=== PATIENT | female | born 1950 | race Caucasian/White ===

== ENCOUNTER 2018-08-06 09:42 | Emergency (ER) | payer MEDICARE ==
--- NOTE | 2018-08-06 11:16 | ED ---
General Adult HPI - General Chief complaint: Skin/Abscess/Foreign Body Stated complaint: bumps all over Time Seen by Provider: 08/06/18 10:33 Source: patient, RN notes reviewed Mode of arrival: ambulatory Limitations: no limitations - History of Present Illness Initial comments: 67-year-old female presented to the emergency room today with a chief complaint of rash. Patient does admit that over the last few weeks she's had red spots to the flexor areas. She states underneath her breast and thighs. She states now has one to the left elbow area. She also admits that she's noticed a small little bumps to the right hand she's had a few around to the left. Patient states that it's very itchy. She states that there is some redness to the right side of her face. She admits to itchiness. States she has not seen any bumps in those areas. Denies any other complaints or symptoms. Patient denies any recent fever, chills, shortness of breath, chest pain, back pain, abdominal pain, nausea or vomiting, numbness or tingling, headaches or visual changes, or any other complaints. - Related Data Home Medications Medication Instructions Recorded Confirmed Aspirin EC [Ecotrin Low Dose] 81 mg PO DAILY 07/02/18 08/06/18 Atorvastatin [Lipitor] 20 mg PO DAILY 07/02/18 08/06/18 Benzonatate [Tessalon Perles] 100 mg PO TID PRN 07/02/18 08/06/18 Calcium Carbonate [Calcium] 600 mg PO DAILY 07/02/18 08/06/18 Cholecalciferol [Vitamin D3] 1,000 unit PO DAILY 07/02/18 08/06/18 Losartan [Cozaar] 25 mg PO DAILY 07/02/18 08/06/18 Magnesium Oxide [Mag-Ox] 250 mg PO DAILY 07/02/18 08/06/18 Montelukast [Singulair] 10 mg PO DAILY 07/02/18 08/06/18 [place]-3 Fatty Acids/Fish Oil [Fish 1 cap PO DAILY 07/02/18 08/06/18 Oil 1,000 mg Softgel] metFORMIN HCL [Glucophage] 500 mg PO BID 07/02/18 08/06/18 Nystatin 100,000 Unit/gm Powd 1 applic TOPICAL TID PRN 08/06/18 08/06/18 [Mycostatin Powder] Previous Rx's Medication Instructions Recorded predniSONE 20 mg PO DIRECTED #11 tab 08/06/18 Allergies Allergy/AdvReac Type Severity Reaction Status Date / Time No Known Allergies Allergy Verified 08/06/18 10:46 Review of Systems ROS Statement: Those systems with pertinent positive or pertinent negative responses have been documented in the HPI. ROS Other: All systems not noted in ROS Statement are negative. Past Medical History Past Medical History: Asthma, COPD, Diabetes Mellitus, Hyperlipidemia Additional Past Medical History / Comment(s): takes blood pressure pill to help her kidneys History of Any Multi-Drug Resistant Organisms: None Reported Past Surgical History: Cholecystectomy, Hysterectomy, Tonsillectomy Additional Past Surgical History / Comment(s): left shoulder total replacement, neck sx, cataracts, mastoid x3, Past Psychological History: No Psychological Hx Reported Smoking Status: Never smoker Past Alcohol Use History: None Reported Past Drug Use History: None Reported General Exam - General Exam Comments Initial Comments: General: The patient is awake and alert, in no distress, and does not appear acutely ill. Eye: Pupils are equal, round and reactive to light. Extra-ocular movements are intact. No nystagmus. There is normal conjunctiva bilaterally. No signs of icterus. Ears, nose, mouth and throat: There are moist mucous membranes and no oral lesions. Neck: The neck is supple, there is no tenderness or JVD. Cardiovascular: There is a regular rate and rhythm. No murmur, rub or gallop is appreciated. Respiratory: Lungs are clear to auscultation, respirations are non-labored, breath sounds are equal. No wheezes, stridor, rales, or rhonchi. Musculoskeletal: Normal ROM, no tenderness. Sensation intact. Strength 5/5. Pulses equal bilaterally 2+. Neurological: A&O x 3. CN II-XII intact, There are no obvious motor or sensory deficits. Coordination appears grossly intact. Speech is normal. Skin: Patient does have vesicle-like lesions to the right hand at the base of the web spacing on the volar aspect. Also some lesions seen grouped Together. The webspace between the second and third digit of the left hand. She does have redness to the flexor area of the left elbow there are no grouped vesicle lesions. Also redness to the right side of face with again no lesions present. Areas blanching. Psychiatric: Cooperative, appropriate mood & affect, normal judgment. Limitations: no limitations Course Vital Signs 08/06/18 09:45 Temperature 97.9 F Pulse Rate 78 Respiratory 20 Rate Blood Pressure 153/78 O2 Sat by Pulse 100 Oximetry Medical Decision Making - Medical Decision Making Was discussed with patient about hepatic lesions versus scabies. Patient will be treated with steroids as well as follow-up physician also runner worker. Disposition Clinical Impression: Rash Disposition: HOME SELF-CARE Condition: Good Instructions: Acute Rash (ED) Additional Instructions: Please follow up with the family physician also runner worker as discussed is coming week. Please return here to the emergency room for any symptoms increase or worsen or for any other concerns. Prescriptions: predniSONE 20 mg PO DIRECTED #11 tab Is patient prescribed a controlled substance at d/c from ED?: No Referrals: lOya Isaac MD [Primary Care Provider] - 1-2 days Time of Disposition: 11:14
[2018-08-06 11:40] VITALS: BP 157/79; PULSE 70; RESP 18; TEMP 98.5
== END 2018-08-06 11:44 | disposition home or self-care (01) ==
LOC: EC 09:42
DX: R21 Rash and other nonspecific skin eruption (principal); J44.9 Chronic obstructive pulmonary disease, unspecified; E11.9 Type 2 diabetes mellitus without complications; E78.5 Hyperlipidemia, unspecified; Z79.82 Long term (current) use of aspirin; Z79.84 Long term (current) use of oral hypoglycemic drugs; Z79.899 Other long term (current) drug therapy; Z96.612 Presence of left artificial shoulder joint
CPT/HCPCS: 99283

== ENCOUNTER → 2022-04-21 | Outpatient (CLI) | payer MEDICARE ==
[2022-04-21 10:46] VITALS: BP 171/78; PULSE 70; RESP 18; TEMP 98.8
--- NOTE | 2022-04-21 11:54 | XR ---
EXAM TYPE: LUMBAR SPINE X RAY SERIES COMPARISON: NONE HISTORY: Pain TECHNIQUE: 3 views are submitted. FINDINGS: Alignment is anatomic. The pedicles are intact. The transverse processes are intact. There is post surgical change involving the lower lumbar spine with grade 1 anterolisthesis L4 on L5. Degenerative disc disease L2-3 and L3-L4. Sclerotic changes of the L3 segment could be associated with a large amara tebral body hemangioma. Hypertrophic and degenerative changes seen at the thoracolumbar junction. Vas cular calcifications noted. Surgical clips right upper quadrant. Retained fecal debris throughout the visualized colon correlate for constipation. Dilated gastric bubble. IMPRESSION: 1. Postsurgical changes with grade 1 anterolisthesis L4 on L5. 2. Multilevel degenerative disc disease with slight expansion of the L3 vertebral segment. Vertebral body hemangioma in the differential diagnosis. Other etiologies not excluded. Recommend CT scan. 3. Gastric bubble is distended.
--- NOTE | 2022-04-21 14:54 | P.PAINPG ---
PQRS Measure Charge Sheet Comment: HISTORY OF PRESENT ILLNESS: 71 yr old female as a referral from Dr. Shawn Alberto ([facility]) presents today with severe and chronic LBP secondary to DDD and facet arthropathy for evaluation. Pt states her LBP is 6/10 in intensity, intermittent, tight/ pressure in sensation accompanied with BLE cramping. Pain is provoked with PT in January 2022 for 3 weeks which provoked pain, walking/standing or periods of 10 min or more. Pain is palliated with heat, medications (Tylenol OTC, Aleve OTC), home based stretching, repositioning and rest. PMH: Asthma, COPD, Diabetes Mellitus, Hyperlipidemia PSH: Cholecystectomy, Hysterectomy, Tonsillectomy, Lumbar surgery(2019), L shoulder Total Replacement (2018), Neck Surgery, Cataract Resection, Mastoidectomy x 3. SH: Negative x 3. FH: Non contributory All: NKDA Meds: See list REVIEW OF ORGAN SYSTEMS: CONSTITUTIONAL: No fevers or chills. No recent weight loss. NEUROLOGICAL: + numbness and tingling along the distal extremities. No seizure disorders or headaches. MUSCULOSKELETAL: + pain PSYCHIATRIC: Denies current depression or suicidal thoughts. Physical Examinations : Constitutional : Cooperative , not in acute distress . Neurologic : Cranial nerve II to XII intact. No focal ne urological deficits. Psychiatric : alert & oriented x 3. Matching mood & appropriate affect. Judgment & insight intact. Musculoskeletal : Cervical Spine Motor strength in the deltoid and biceps: Normal right side. Normal Left side Motor strength biceps and the wrist extensors: Normal right side . Normal left side Motor strength in the triceps muscle: Normal right side. Normal left side Deep tendon reflexes: Normal at the biceps. Normal at Brachioradialis. Normal at triceps Vertebral body tenderness to deep palpation over BL L4-L5, L5-S1 Cervical facet loading test: positive bilaterally Spurling test: positive bilaterally Neck distraction test: positive bilaterally Molina sign: positive bilaterally Lumbar spine Motor strength lower extremities ,thigh and legs 5/5 Right side , 5/5 Left side Deep tendon reflexes : Normal Knee Jerk. Normal Ankle Jerk Vertebral body tenderness over Lumbar facet Loading Test: positive Right / positive Left Range of motion of the lumbar spine Flexion 30 degrees, extension 10 degrees Straight Leg Raise test: Left/ Right positive at degree Vipul test: positive right / positive left. Severe tenderness over the Sacroiliac joint on the Right / Left sides Gaenslen test: positive bilaterally Seated flexion test: positive bilaterally. Sacral spine : Severe tenderness over the Sacroiliac joint: right side / left side Range of motion: Flexion of the lumbar spine <60 degrees Range of motion: Extension of the lumbar spine <20 degrees Gaenslen's Test positive Darinel's Test positive Vipul test: positive right side / left side Thigh Thrust Test Sacral Thrust Test Imaging: None on file Assessment/ Plan : Recommendation of xray lumbar spine M51.36. May return to our clinic for further evaluation and possible additional testing and referrals as needed. All questions answered. I have spent greater than 30 minutes on patient care today. Dr Chairez was available by phone for the evaluation of this patient. The time was used to review the medical records including relevant urine studies and Prescription history (MAPs), review of the available imaging, evaluation and examination of the patient, coordination of care with the medical staff and if applicable referring physicians, as well as creation of the medical record PQRS Narrative: Smoking Status Never smoker Home Medications: Ambulatory Orders Aspirin EC [Ecotrin Low Dose] 81 mg PO DAILY 07/02/18 Atorvastatin [Lipitor] 20 mg PO DAILY 07/02/18 Benzonatate [Tessalon Perles] 100 mg PO TID PRN 07/02/18 Calcium Carbonate [Calcium] 600 mg PO DAILY 07/02/18 Cholecalciferol [Vitamin D3] 1,000 unit PO DAILY 07/02/18 Losartan [Cozaar] 25 mg PO DAILY 07/02/18 Magnesium Oxide [Mag-Ox] 250 mg PO DAILY 07/02/18 Montelukast [Singulair] 10 mg PO DAILY 07/02/18 [place]-3 Fatty Acids/Fish Oil [Fish Oil 1,000 mg Softgel] 1 cap PO DAILY 07/02/18 metFORMIN HCL [Glucophage] 500 mg PO BID 07/02/18 Nystatin 100,000 Unit/gm Powd [Mycostatin Powder] 1 applic TOPICAL TID 10 Days gm 08/06/18 Nystatin 100,000 Unit/gm Powd [Mycostatin Powder] 1 applic TOPICAL TID PRN 08/06/18 predniSONE [Deltasone] 20 mg PO DIRECTED #11 tab 08/06/18 Controlled Substance Measures - Controlled Substance Measures Is patient prescribed a controlled substance at discharge?: No
== END ==
LOC: PNWHC3 09:25
PROVIDERS: ATTEND Specialist
DX: M51.36 Other intervertebral disc degeneration, lumbar region (principal); M47.816 Spondylosis without myelopathy or radiculopathy, lumbar region; J44.9 Chronic obstructive pulmonary disease, unspecified; E11.9 Type 2 diabetes mellitus without complications; E78.5 Hyperlipidemia, unspecified
CPT/HCPCS: 72100; G0463; 99211

== ENCOUNTER → 2022-06-06 | Outpatient (CLI) | payer MEDICARE ==
[2022-06-06 11:21] VITALS: BP 171/80; PULSE 67; RESP 18; TEMP 98.1
--- NOTE | 2022-06-06 14:21 | P.PAINPG ---
PQRS Measure Charge Sheet Comment: A 71 yr old female with a history of severe and chronic low back pain secondary to lumbar degenerative disc diseases and lumbar spondylosis with facet arthropathy presents today for x ray lumbar spine results. Pain level is currently at 8/10 in intensity, constant, achy/ sore in character w shooting towards the BLES. Pain is provoked by standing, lifting, twisting and bending. Pain is alleviated with medications (Aleve), heat, repositioning, physical therapy for 6 weeks in January and February 2022, laying supine and rest. Patient is currently on Aleve OTC Patient denies any side effects of the medication(s), denies excessive drowsiness or sleepiness, denies suicidal ideation and reports that the current pain medication is helping to control the pain and improve activities of daily living. Patient denies any motor or sensory deficits. Patient denies any fever or night sweats, denies any change in the bowel movements or urination. Physical Examination: -Constitutional: Cooperative. Not in acute distress . - Neurologic: Cranial nerve II to XII intact. No focal neurological deficits. - Psychatric: Alert & oriented x 3. Matching mood & appropriate affect. Judgment and insight intact. - Musculoskeletal: Cervical spine: Muscle bulk/ tone/ strength in the bilateral upper extremities normal Vertebral body tenderness to palpation over Spurling test positive Distraction test positive Facet loading test positive Thoracic spine Muscle bulk / tone/ strength in the bilateral paraspinal muscles normal Vertebral body tender to palpation over Facet loading test positive Lumbar spine: Motor bulk/ tone/ strength lower extremities , thigh and legs : 5/5 Deep tendon reflexes : Normal Knee Jerk. Normal Ankle Jerk . Vertebral body tenderness to palpation over L4, L5 Lumbar Facet Loading Test positive Straight Leg Raise: positive at 30 degrees right side/ left side Gaenslen's Test positive Sacral spine : Severe tenderness over the Sacroiliac joint: right side / left side Range of motion: Flexion of the lumbar spine <60 degrees Range of motion: Extension of the lumbar spine <20 degrees Gaenslen's Test positive Darinel's Test positive Vipul test: positive right side / left side Thigh Thrust Test Sacral Thrust Test Imaging: Lumbar spine x ray results reviewed Assessment and plan: Chronic low back pain secondary to lumbar degenerative disc disease , lumbar spondylosis with facet arthropathy without myelopathy Recommendation of MRI without contrast of the lumbar spine re: M51.36. Pt may return to our clinic within 2 weeks for a re evaluation. Pt stated she is claustrophobic w MRI tunnels and needs medication for it. E scribed Valium 5mg 1-2 tabs 30 min prior to testing NR. Use, side effects and adverse reactions discussed and pt verbalized understanding. Risks, benefits of procedure discussed and pt verbalized understanding. Denies anticoagulant use or medical history of diabetes. All patient questions answered MAPS reviewed and it was appropriate. I have spent less than 30 minutes on patient care today. Dr Chairez was available by phone for the evaluation of this patient. The time was used to review the medical records including relevant urine studies and Prescription history (MAPs), review of the available imaging, evaluation and examination of the patient, coordination of care with the medical staff and if applicable referring physicians, as well as creation of the medical record - Pain Location Bilateral Buttock Non-Pharmacological Interventions: Heat, Inactivity, Position/Reposition, Sitting Pharmacological Interventions: Medication, PRN Medication PQRS Narrative: Smoking Status Never smoker Hx Alcohol Use (MH) No Home Medications: Ambulatory Orders Aspirin EC [Ecotrin Low Dose] 81 mg PO DAILY 07/02/18 Atorvastatin [Lipitor] 20 mg PO DAILY 07/02/18 Benzonatate [Tessalon Perles] 100 mg PO TID PRN 07/02/18 Calcium Carbonate [Calcium] 600 mg PO DAILY 07/02/18 Cholecalciferol [Vitamin D3] 1,000 unit PO DAILY 07/02/18 Losartan [Cozaar] 25 mg PO DAILY 07/02/18 Magnesium Oxide [Mag-Ox] 250 mg PO DAILY 07/02/18 Montelukast [Singulair] 10 mg PO DAILY 07/02/18 [place]-3 Fatty Acids/Fish Oil [Fish Oil 1,000 mg Softgel] 1 cap PO DAILY 07/02/18 metFORMIN HCL [Glucophage] 500 mg PO BID 07/02/18 Nystatin 100,000 Unit/gm Powd [Mycostatin Powder] 1 applic TOPICAL TID 10 Days gm 08/06/18 Nystatin 100,000 Unit/gm Powd [Mycostatin Powder] 1 applic TOPICAL TID PRN 08/06/18 predniSONE [Deltasone] 20 mg PO DIRECTED #11 tab 08/06/18 Cyclobenzaprine [Flexeril] 10 mg PO HS 30 Days #30 tab 04/21/22 Diclofenac Sodium Gel [Voltaren Gel] 100 gm TOPICAL QID 30 Days #100 g 04/21/22 diazePAM [Valium] 5 mg PO Q24H 1 Days #2 tab 06/06/22 Controlled Substance Measures - Controlled Substance Measures Is patient prescribed a controlled substance at discharge?: No
== END ==
LOC: PNWHC3 09:56
PROVIDERS: ATTEND Specialist
DX: M51.36 Other intervertebral disc degeneration, lumbar region (principal); M47.816 Spondylosis without myelopathy or radiculopathy, lumbar region; G89.29 Other chronic pain
CPT/HCPCS: 99211

== ENCOUNTER → 2022-06-25 | Outpatient (CLI) | payer MEDICARE ==
--- NOTE | 2022-06-25 16:04 | MR ---
EXAMINATION TYPE: MR lumbar spine wo con DATE OF EXAM: 06/25/2022 COMPARISON: None history of spinal fusion in 2019 HISTORY: LBP, difficulty walking, BLE radiculpathy, hx surgery 2019. TECHNIQUE: Multiecho multiplanar images of lumbar spine were obtained without contrast. FINDINGS: There are postsurgical changes anterior metallic fusion at the L4, L5 and S1 levels. The lumbar vertebral segments are normal in height and alignment. There is mild degenerative disc disease at the L2-3 and L3-4 levels where there is mild disc space na rrowing and decreased signal intensity. At the L3-4 level, there is mild circumferential disc bulge. There are no lumbar disc herniations Secondary to disc bulge and mild thickening of ligamentum flavum, there is a mild to moderate spinal stenosis at the L3-4 level The conus medullaris and cauda equina appear normal. The neuroforamina are patent. The paraspinal soft tissues are unremarkable. IMPRESSION: 1. Laminectomy and metallic fusion from L4 4 through S1. 2. Mild to moderate spinal stenosis at the L3-4 level described above. 3. Mild degenerative disc disease at the L2-3 and L3-4 level. No lumbar disc herniation. 4. Lumbar vertebral segments are normal in height and alignment.
== END | disposition home or self-care (01) ==
LOC: RADMRIMAIN 13:52
PROVIDERS: ATTEND Specialist
DX: M51.36 Other intervertebral disc degeneration, lumbar region (principal); M43.27 Fusion of spine, lumbosacral region
CPT/HCPCS: 72148

== ENCOUNTER → 2022-06-29 | Outpatient (CLI) | payer MEDICARE ==
[2022-06-29 09:39] VITALS: BP 195/89; PULSE 73; RESP 18; TEMP 98.2
--- NOTE | 2022-06-29 09:53 | P.PN ---
Subjective Progress Note Date: 06/29/22 This is a follow-up visit for 71 yr old female with a history of severe and chronic low back pain secondary to lumbar degenerative disc diseases and lumbar spondylosis with facet arthropathy presents today for discussion about the results of the MRI which was done recently. Pain level is currently at 8/10 in intensity, constant, achy/ sore in character w shooting towards the BLES. Pain is provoked by standing, lifting, twisting and bending. Pain is alleviated with medications (Aleve), heat, repositioning, physical therapy for 6 weeks in January and February 2022, laying supine and rest. Patient is currently on Aleve OTC Patient denies any side effects of the medication(s), denies excessive drowsines s or sleepiness, denies suicidal ideation and reports that the current pain medication is helping to control the pain and improve activities of daily living. Patient denies any motor or sensory deficits. Patient denies any fever or night sweats, denies any change in the bowel movements or urination. Physical Examinations : -Constitutiona : Cooperative , not in acute distress . -HEENT : nech : supple , no Lymphadenopathy , normal thyroid size . : eyes : no ptosis , no icterus, no photophobia . - neurologic : Cranial nerve II to XII intact , no focal neurological deffecit . -psychatric : alert , oriented X 3 , appropriate affect , intact judgment and insight . -Lymphatic : no Lymphadenopathy . - musculoskeltal : Lumber spine moter stegnth lower extremities ,thigh and legs 5/5 Right side , 5/5 Left side deep tendon reflexes : normal Knee Jerk , normal ankle Jerk lumber facet Loading Test =positive Right , positive Left Range of motion of the lumbar spine Flexion 30 degrees, extension 10 degrees strait leg raising test = positive at 45 degree Fabere test= positive Right , and positive LT . tenderness over the Sacroiliac joint on the Right , and Left sides Gaenslen test= positive right ,and positive left . Seated flexion test= positive right ,and positive Left . 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 Denies anticoagulant use or medical history of diabetes. All patient questions answered MAPS reviewed and it was appropriate. Objective - Vital Signs Vital signs: Vital Signs Temp 98.2 F 06/29/22 09:33 Pulse 73 06/29/22 09:33 Resp 18 06/29/22 09:33 BP 195/89 06/29/22 09:33 Pulse Ox 97 06/29/22 09:33 FiO2 Intake & Output 06/28/22 06/29/22 06/29/22 18:59 06:59 18:59 Weight 95.254 kg
== END | disposition home or self-care (01) ==
LOC: PNWHC3 09:06
PROVIDERS: ATTEND Specialist
DX: M51.36 Other intervertebral disc degeneration, lumbar region (principal)
CPT/HCPCS: 99211

== ENCOUNTER 2022-06-30 06:35 | Day surgery (SDC) | payer MEDICARE ==
[2022-06-30 07:23] VITALS: TEMP 96.9
[2022-06-30] MEDS ORDERED: LIDOCAINE 1% (10MG/ML) FOR IV START INTRADERMA ONE (07:39)
[2022-06-30] MEDS ORDERED: LACTATED RINGERS 1,000 ML IV ONE (07:39)
[2022-06-30] MEDS ORDERED: IOPAMIDOL M200 10 ML VIAL ONE (07:43)
[2022-06-30] MEDS ORDERED: methylPREDNISolone ACETATE 80 MG/ML 1 ML VIAL ONE ×2 (07:43)
[2022-06-30] MEDS ORDERED: MIDAZOLAM 2 MG/2 ML VIAL ONE (07:43)
[2022-06-30] MEDS ORDERED: fentaNYL (PF) 50 MCG/ML 2 ML AMP ONE (07:43)
[2022-06-30 07:47] LABS: Glucose,Whole Blood 129 mg/dL (70-110)
--- NOTE | 2022-06-30 08:04 | P.PCN ---
Date of Procedure: 06/30/22 Procedure(s) Performed: PREOPERATIVE DIAGNOSIS: 1-Lumbar radiculopathy . 2-failed back surgery syndrome lumbar area. 3-lumbar spondylosis with lumbar facet arthropathy POSTOPERATIVE DIAGNOSIS: Same as preoperative diagnoses. PROCEDURE 1. Transforaminal epidural steroid injection under fluoroscopic guidance at Bilateral L3-4 level. (Fluoroscopy images stored on file in the radiology Department ) 2. Lumbar epidurogram . ANESTHESIA: Local with 1% lidocaine 3 ml , moderate sedation with intravenous Versed 2 mg and fentanyle 100 micrograms. Sedation start time :07:45 . Tashia tion. stop time : 08:00 . EBL: Minimal PROCEDURE INDICATION: The patient with low back pain and radiculopathy symptoms unresponsive to conservative treatment. PROCEDURE DESCRIPTION / TECHNIQUE: The patient was seen and identified in the preoperative area. Risks, benefits, complications, and alternatives were discussed with the patient. The patient agreed to proceed with the procedure and signed the consent. IV was started, and vital signs were stable. Patient was taken to the OR and time out was completed. The patient was placed in the prone position on procedure table and a pillow was placed under the abdomen to reduce lumbar lordosis. The lumbosacral area was prepped and draped in the usual sterile fashion. Critical pause was taken. Vital signs were closely monitored during the procedure. Conscious sedation was used during the procedure to decrease patient s anxiety. Using oblique fluoroscopy, the chin of the `Kristiny dog at Right L3-4 level was identified, and the skin and deeper tissues just below was localized with 1% lidocaine. Subsequently, a 22-gauge 5-inch spinal needle was advanced under a tunneled view fluoroscopic guidance just underneath the chin of the `Kristiny dog at the right L3-4 Under lateral fluoroscopy, the needle was then advanced to the posterior border of the interforaminal space. After negative aspiration of CSF and blood and with no paresthesias, 1 mL Isovue 200 contrast dye was injected excellent epidurogram and outlining of the nerve root Subsequently, 3 mL of block solution containing 30 mg Depo-Medrol and 2 mL of 0.9% normal saline PF was injected. Needle was removed and the same procedure was repeated at the left L3-4 level . At the end of the procedure, skin was cleansed, and bandages were applied. COMPLICATIONS:none DISPOSITION / PLANS: The patient was placed in a supine position and transferred to the recovery area in a stable condition for observation. There was no evidence of lower extremity motor or sensory deficit after the procedure. Patient was discharged from the recovery room after meeting discharge criteria. Home discharge instructions were given to the patient by the staff. The patient was reexamined prior to discharge.
[2022-06-30] MEDS ORDERED: IV FLUID CONTINUATION 900 ML IV ONE (08:06)
[2022-06-30 08:09] VITALS: RESP 16
[2022-06-30 08:25] VITALS: BP 149/76; PULSE 64
--- NOTE | 2022-06-30 12:27 | FL ---
Fluoroscopy HISTORY: Pain 10 seconds fluoroscopy time supplied to the referring clinician. 2 intraoperative C-arm images docum ent the procedure. See dictated report from anesthesia.
== END 2022-06-30 08:52 | disposition home or self-care (01) ==
LOC: ORPAIN 06:35
PROVIDERS: ATTEND Anesthesiology
DX: M47.26 Other spondylosis with radiculopathy, lumbar region (principal); M96.1 Postlaminectomy syndrome, not elsewhere classified
CPT/HCPCS: 64483; J2250; J1040; J3010; Q9966; 99152

== ENCOUNTER → 2022-07-21 | Outpatient (CLI) | payer MEDICARE ==
[2022-07-21 10:39] VITALS: BP 177/84; PULSE 68; RESP 18; TEMP 98.3
--- NOTE | 2022-07-21 13:39 | P.PAINPG ---
PQRS Measure Charge Sheet Comment: A 71 yr old female with a history of severe and chronic low back pain secondary to lumbar degenerative disc diseases and lumbar spondylosis with facet arthropathy without myelopathy presents today for evaluation s/p BL TFESI L3-L4. Pt states she experienced 50-60% pain relief x 3 wks s/p procedure. Pain level is currently at 7/10 in intensity, constant, localized in mid lumbar spine, dull/ achy in character w shooting towards the BL thighs. Pain is provoked by bending/ twisting. Pain is alleviated with use of walking cane for ambulatory assistance, meds, injections, heat, ice, sitting w LEs elevated, repositioning and rest. Interventional pain procedures completed include BL TFESI L3-4 x1. Patient is currently on Voltaren gel Patient denies any side effects of the medication(s), denies excessive drowsiness or sleepiness, denies suicidal ideation and reports that the current pain medication is helping to control the pain and improve activities of daily living. Patient denies any motor or sensory deficits. Patient denies any fever or night sweats, denies any change in the bowel movements or urination. Physical Examination: -Constitutional: Cooperative. Not in acute distress . - Neurologic: Cranial nerve II to XII intact. No focal neurological deficits. - Psychatric: Alert & oriented x 3. Matching mood & appropriate affect. Judgment and insight intact. - Musculoskeletal: Cervical spine: Muscle bulk/ tone/ strength in the bilateral upper extremities normal Vertebral body tenderness to palpation over Spurling test positive Distraction test positive Facet loading test positive Thoracic spine Muscle bulk / tone/ strength in the bilateral paraspinal muscles normal Vertebral body tender to palpation over Facet loading test positive Lumbar spine: Motor bulk/ tone/ strength lower extremities , thigh and legs : 5/5 Deep tendon reflexes : Normal Knee Jerk. Normal Ankle Jerk . Vertebral body tenderness to palpation over L3, L4 Lumbar Facet Loading Test positive Straight Leg Raise: positive at 30 degrees right side/ left side Gaenslen's Test positive Sacral spine : Severe tenderness over the Sacroiliac joint: right side / left side Range of motion: Flexion of the lumbar spine <60 degrees Range of motion: Extension of the lumbar spine <20 degrees Gaenslen's Test positive Darinel's Test positive Vipul test: positive right side / left side Thigh Thrust Test Sacral Thrust Test Assessment and plan: Chronic low back pain secondary to lumbar degenerative disc disease , lumbar spondylosis with facet arthropathy without myelopathy Recommendation of BL TFESI L3-L4 #2. May need a series of injections, up to 3 within a 6 mo period, for optimal pain relief. Risks, benefits of proc edure discussed and pt verbalized understanding. Admits to anticoagulant use or medical history of diabetes. Protocol for discontinuation/ continuation of medications hillary procedure discussed. All patient questions answered MAPS reviewed and it was appropriate. Prescription refill for Voltaren gel 90 say supply to [facility] per pt request. I have spent less than 30 minutes on patient care today. Dr Chairez was available by phone for the evaluation of this patient. The time was used to review the medical records including relevant urine studies and Prescription his tory (MAPs), review of the available imaging, evaluation and examination of the patient, coordination of care with the medical staff and if applicable referring physicians, as well as creation of the medical record - Pain Location Bilateral Lower Back Non-Pharmacological Interventions: Heat, Physical Therapy, Position/Reposition, Sitting Pharmacological Interventions: Epidural, PRN Medication, Topical Medication PQRS Narrative: Smoking Status Never smoker Hx Alcohol Use (MH) No Home Medications: Ambulatory Orders Aspirin EC [Ecotrin Low Dose] 81 mg PO DAILY 07/02/18 Calcium Carbonate [Calcium] 600 mg PO DAILY 07/02/18 Cholecalciferol [Vitamin D3] 1,000 unit PO DAILY 07/02/18 Losartan [Cozaar] 50 mg PO DAILY 07/02/18 Magnesium Oxide [Mag-Ox] 400 mg PO DAILY 07/02/18 Montelukast [Singulair] 10 mg PO DAILY 07/02/18 [place]-3 Fatty Acids/Fish Oil [Fish Oil 1,000 mg Softgel] 1 cap PO DAILY 07/02/18 metFORMIN HCL [Glucophage] 750 mg PO BID 07/02/18 Nystatin 100,000 Unit/gm Powd [Mycostatin Powder] 1 applic TOPICAL TID 10 Days gm 08/06/18 Rosuvastatin [Crestor] 20 mg PO DAILY 06/30/22 Diclofenac Sodium Gel [Voltaren Gel] 100 gm TOPICAL BID PRN 90 Days #300 gm 07/21/22 Controlled Substance Measures - Controlled Substance Measures Is patient prescribed a controlled substance at discharge?: No
== END ==
LOC: PNWHC3 09:18
PROVIDERS: ATTEND Specialist
DX: M47.816 Spondylosis without myelopathy or radiculopathy, lumbar region (principal); M51.36 Other intervertebral disc degeneration, lumbar region; E11.9 Type 2 diabetes mellitus without complications; Z79.01 Long term (current) use of anticoagulants; G89.29 Other chronic pain
CPT/HCPCS: 99211

== ENCOUNTER → 2022-09-16 | Outpatient (CLI) | payer MEDICARE ==
--- NOTE | 2022-09-16 10:46 | XR ---
EXAM TYPE: LUMBAR SPINE X RAY SERIES COMPARISON: NONE HISTORY: Postop TECHNIQUE: 3 views are submitted. FINDINGS: The gastric bubble is distended. Surgical clips in the right upper quadrant. Diffuse osteopenia with multilevel vertebral changes. There is degenerative disc disease thoracolumbar junction and there are vascular calcifications. There is postsurgical change extending from levels L3-S1. Near anatomic alignment with minimal joey listhesis of L3 on L4 and L4 on L5. Transpedicular screws and laminectomy changes are noted. Suspect foraminal encroachment L4-5 and L5-S1 bilaterally IMPRESSION: 1. Postoperative change in near-anatomic alignment. 2. Distention of the gastric bubble.
== END | disposition home or self-care (01) ==
LOC: RADXRMAIN 10:19
PROVIDERS: ATTEND Neurological Surgery
DX: K63.89 Other specified diseases of intestine (principal); Z98.890 Other specified postprocedural states
CPT/HCPCS: 72100

== ENCOUNTER 2024-02-18 08:23 | Emergency (ER) | payer MEDICARE ==
[2024-02-18] MEDS: SODIUM CHLORIDE 0.9% 1,000 ML IV STA (09:13)
[2024-02-18 09:15] VITALS: TEMP 98.7
[2024-02-18] MEDS: ONDANSETRON 4 MG/2 ML VIAL IVP STA (09:15)
[2024-02-18] MEDS: FAMOTIDINE 20 MG/2 ML VIAL IV STA (09:17)
--- NOTE | 2024-02-18 10:02 | ED ---
Nausea/Vomiting/Diarrhea HPI - General Chief complaint: Nausea/Vomiting/Diarrhea Stated complaint: NVD Time Seen by Provider: 02/18/24 08:37 Source: patient, RN notes reviewed Mode of arrival: ambulatory Limitations: no limitations - History of Present Illness Initial comments: This is a 73-year-old female who presents to the emergency department for dariel sea, vomiting, diarrhea, and abdominal pain. She started with diarrhea and abdominal pain yesterday, which progressed to nausea and vomiting this morning. Abdominal pain is described as diffuse and somewhat of a burning sensation. She did start Celebrex a couple of weeks ago for chronic pain, but otherwise denies any new medications. Unsure if the diarrhea would be characterized as watery or somewhat formed. Denies any blood in her vomit or stool. Denies any fever/chills or sick contacts. - Related Data Home Medications Medication Instructions Recorded Confirmed Aspirin EC [Ecotrin Low Dose] 81 mg PO DAILY 07/02/18 02/18/24 Montelukast [Singulair] 10 mg PO DAILY 07/02/18 02/18/24 [place]-3 Fatty Acids/Fish Oil [Fish 1 cap PO DAILY 07/02/18 02/18/24 Oil 1,000 mg Softgel] Rosuvastatin [Crestor] 20 mg PO DAILY 06/30/22 02/18/24 Acetaminophen Tab [Tylenol Tab] 500 mg PO Q6H PRN 02/18/24 02/18/24 Calcium Carbonate/Vitamin D3 2 tab PO DAILY 02/18/24 02/18/24 [Calcium 600 mg-Vit D3 10 mcg (400 Unit)] Celecoxib [CeleBREX] 200 mg PO DAILY 02/18/24 02/18/24 Cholecalciferol [Vitamin D3 (125 125 mcg PO DAILY 02/18/24 02/18/24 Mcg = 5000 Iu)] Cinnamon Bark [Cinnamon] 500 mg PO DAILY 02/18/24 02/18/24 Cyanocobalamin (Vitamin B-12) 1,000 mcg PO DAILY 02/18/24 02/18/24 [Vitamin B-12] Fluticasone Propion/Salmeterol 1 puff PO RT-BID 02/18/24 02/18/24 [Fluticasone-Salmeterol 250-50] Losartan [Cozaar] 50 mg PO DAILY 02/18/24 02/18/24 Magnesium Oxide [Mag-Ox] 400 mg PO DAILY 02/18/24 02/18/24 Mv-Min/Folic/K1/Lycopen/Lutein 1 tab PO DAILY 02/18/24 02/18/24 [Centrum Adults 50 Plus Minis] Potassium Gluconate 99 mg PO DAILY 02/18/24 02/18/24 amLODIPine [Norvasc] 5 mg PO DAILY 02/18/24 02/18/24 metFORMIN HCL [metFORMIN HCL ER] 750 mg PO BID 02/18/24 02/18/24 Previous Rx's Medication Instructions Recorded Loperamide [Imodium] 2 mg PO QID PRN #30 capsule 02/18/24 Ondansetron Odt [Zofran Odt] 4 mg PO Q8HR PRN #30 tab 02/18/24 Allergies Allergy/AdvReac Type Severity Reaction Status Date / Time No Known Allergies Allergy Verified 02/18/24 11:46 Review of Systems ROS Statement: Those systems with pertinent positive or pertinent negative responses have been documented in the HPI. ROS Other: All systems not noted in ROS Statement are negative. Past Medical History Past Medical History: Asthma, COPD, Diabetes Mellitus, Hyperlipidemia Additional Past Medical History / Comment(s): takes blood pressure pill to help her kidneys History of Any Multi-Drug Resistant Organisms: None Reported Past Surgical History: Cholecystectomy, Hysterectomy, Tonsillectomy Additional Past Surgical History / Comment(s): left shoulder total replacement, neck sx, cataracts, mastoid x3, Past Anesthesia/Blood Transfusion Reactions: No Reported Reaction Past Psychological History: No Psychological Hx Reported Smoking Status: Never smoker Past Alcohol Use History: None Reported Past Drug Use History: None Reported General Exam Limitations: no limitations General appearance: alert, in no apparent distress Head exam: Present: atraumatic, normocephalic, normal inspection Respiratory exam: Present: normal lung sounds bilaterally. Absent: respiratory distress, wheezes, rales, rhonchi, stridor Cardiovascular Exam: Present: regular rate, normal rhythm, normal heart sounds. Absent: systolic murmur, diastolic murmur, rubs, gallop, clicks GI/Abdominal exam: Present: soft, tenderness (diffuse), normal bowel sounds. Absent: distended, guarding, rebound, rigid Neurological exam: Present: alert, oriented X3, CN II-XII intact Psychiatric exam: Present: normal affect, normal mood Skin exam: Present: warm, dry, intact, normal color. Absent: rash Course Vital Signs 02/18/24 08:32 Temperature 98.7 F Pulse Rate 93 Respiratory 18 Rate Blood Pressure 143/79 O2 Sat by Pulse 95 Oximetry Medical Decision Making - Medical Decision Making This is a 73 year old female who presents to the emergency department for abdominal pain, nausea, vomiting, and diarrhea. Was pt. sent in by a medical professional or institution? @ -No Did you speak to anyone other than the patient for history? @ -No Did you review nursing and triage notes? @ -Yes, and I agree, it is accurate with regards to the patient's symptoms. Were old charts reviewed? @ -No Differential Diagnosis? @ -Differential Abdominal Pain Women: Appendicitis, Cholecystitis, diverticulosis, ischemic bowel, pancreatitis, hepatitis, UTI, gastroenteritis, AAA, incarcerated hernia, bowel obstruction, constipation, inflammatory bowel, hepatitis, peptic ulcer disease, splenic infarction, perforated viscus, vulvitis, ovarian torsion, PID, kidney stone, pl acenta abruption, this is not meant to be an all-inclusive list EKG interpreted by me (3pts min.)? @ -EKG interpreted by me demonstrating the following: Sinus rhythm. Ventri cular rate 90 bpm, W[place] interval 149 ms, QRS duration 83 ms, QTc 416 ms. X-rays interpreted by me (1pt min.)? @ -Not obtained CT interpreted by me (1pt min.)? @ -CT scan of the abdomen and pelvis obtained. My interpretation identifies no evidence of bowel wall thickening or free air. U/S interpreted by me (1pt. min.)? @ -Not obtained What testing was considered but not performed? (CT, X-rays, U/S, labs)? Why? @ -None What meds were considered but not given? Why? @ -None Did you discuss the management of the patient with other professionals? @ -No Did you reconcile home meds? @ -No Was smoking cessation discussed for >3mins.? @ -No Was critical care preformed (if so, how long)? @ -No Were there social determinants of health that impacted care today? How? (Homelessness, low income, unemployed, alcoholism, drug addiction, transportation, low edu. Level, literacy, decrease access to med. care, fpc, rehab)? @ -No Was there de-escalation of care discussed even if they declined? (Discuss DNR or withdrawal of care, Hospice)? @ -No What co-morbidities impacted this encounter? (DM, HTN, Smoking, COPD, CAD, Cancer, CVA, Hep., AIDS, mental health diagnosis, sleep apnea, morbid obesity)? @ -DM, HLD Was patient admitted / discharged? @ -Discharged. Lab work demonstrates leukocytosis and signs of dehydration. COVID, influenza, and RSV testing were negative. Urinalysis negative for signs of infection. Medication for the patient's nausea and pain were administered in the emergency department. Symptoms likely viral in nature. Prescription for Zofran and Imodium provided with dosing instructions reviewed. She is advised to slowly advance her diet as tolerated and remain well-hydrated. Also advised follow-up with her primary care provider. Undiagnosed new problem with uncertain prognosis? @ -None Drug Therapy requiring intensive monitoring for toxicity (Heparin, Nitro, Insulin, Cardizem)? @ -None Were any procedures done? @ -None Diagnosis/symptom? @ -Gastroenteritis Acute, or Chronic, or Acute on Chronic? @ -Acute Uncomplicated (without systemic symptoms) or Complicated (systemic symptoms)? @ -Uncomplicated Side effects of treatment? @ -None Exacerbation, Progression, or Severe Exacerbation] @ -Not applicable Poses a threat to life or bodily function? @ -No Return precautions reviewed in depth, the patient is instructed to return to the emergency department with any new, worsening, or concerning symptoms. Patient verbalized understanding. This case was discussed in detail with the attending ED physician, Dr. Cardona. Presentation, findings, and treatment plan discussed in detail as well. - Lab Data Result diagrams: 02/18/24 09:11 02/18/24 09:11 Lab Results 02/18/24 02/18/24 02/18/24 Range/Units 09:11 09:11 09:11 WBC 17.1 H (3.8-10.6) k/uL RBC 5.11 (3.80-5.40) m/uL Hgb 14.9 (11.4-16.0) gm/dL Hct 45.9 (34.0-46.0) % MCV 89.9 (80.0-100.0) fL MCH 29.2 (25.0-35.0) pg MCHC 32.5 (31.0-37.0) g/dL RDW 12.9 (11.5-15.5) % Plt Count 254 (150-450) k/uL MPV 8.3 Neutrophils % 95 % Lymphocytes % 2 % Monocytes % 2 % Eosinophils % 1 % Basophils % 0 % Neutrophils # 16.2 H (1.3-7.7) k/uL Lymphocytes # 0.3 L (1.0-4.8) k/uL Monocytes # 0.3 (0-1.0) k/uL Eosinophils # 0.2 (0-0.7) k/uL Basophils # 0.0 (0-0.2) k/uL Sodium 136 L (137-145) mmol/L Potassium 4.7 (3.5-5.1) mmol/L Chloride 105 (98-107) mmol/L Carbon Dioxide 21 L (22-30) mmol/L Anion Gap 10 mmol/L BUN 21 H (7-17) mg/dL Creatinine 0.63 (0.52-1.04) mg/dL Est GFR (CKD-EPI)AfAm >90 (>60 ml/min/1.73 sqM) Est GFR (CKD-EPI)NonAf 88 (>60 ml/min/1.73 sqM) Glucose 184 H (74-99) mg/dL Plasma Lactic Acid Cesar 1.9 (0.7-2.0) mmol/L Calcium 9.1 (8.4-10.2) mg/dL Phosphorus 2.7 (2.5-4.5) mg/dL Magnesium 1.7 (1.6-2.3) mg/dL Total Bilirubin 0.8 (0.2-1.3) mg/dL AST 30 (14-36) U/L ALT 29 (4-34) U/L Alkaline Phosphatase 62 (38-126) U/L Troponin I (0.000-0.034) ng/mL Total Protein 6.9 (6.3-8.2) g/dL Albumin 4.1 (3.5-5.0) g/dL Amylase 57 (30-110) U/L Lipase 72 (23-300) U/L Urine Color Urine Appearance (Clear) Urine pH (5.0-8.0) Ur Specific [place] (1.001-1.035) Urine Protein (Negative) Urine Glucose (UA) (Negative) Urine Ketones (Negative) Urine Blood (Negative) Urine Nitrite (Negative) Urine Bilirubin (Negative) Urine Urobilinogen (<2.0) mg/dL Ur Leukocyte Esterase (Negative) Influenza Type A (PCR) (Not Detectd) Influenza Type B (PCR) (Not Detectd) RSV (PCR) (Not Detectd) SARS-CoV-2 (PCR) (Not Detectd) 02/18/24 02/18/24 02/18/24 Range/Units 09:11 09:11 10:31 WBC (3.8-10.6) k/uL RBC (3.80-5.40) m/uL Hgb (11.4-16.0) gm/dL Hct (34.0-46.0) % MCV (80.0-100.0) fL MCH (25.0-35.0) pg MCHC (31.0-37.0) g/dL RDW (11.5-15.5) % Plt Count (150-450) k/uL MPV Neutrophils % % Lymphocytes % % Monocytes % % Eosinophils % % Basophils % % Neutrophils # (1.3-7.7) k/uL Lymphocytes # (1.0-4.8) k/uL Monocytes # (0-1.0) k/uL Eosinophils # (0-0.7) k/uL Basophils # (0-0.2) k/uL Sodium (137-145) mmol/L Potassium (3.5-5.1) mmol/L Chloride (98-107) mmol/L Carbon Dioxide (22-30) mmol/L Anion Gap mmol/L BUN (7-17) mg/dL Creatinine (0.52-1.04) mg/dL Est GFR (CKD-EPI)AfAm (>60 ml/min/1.73 sqM) Est GFR (CKD-EPI)NonAf (>60 ml/min/1.73 sqM) Glucose (74-99) mg/dL Plasma Lactic Acid Cesar (0.7-2.0) mmol/L Calcium (8.4-10.2) mg/dL Phosphorus (2.5-4.5) mg/dL Magnesium (1.6-2.3) mg/dL Total Bilirubin (0.2-1.3) mg/dL AST (14-36) U/L ALT (4-34) U/L Alkaline Phosphatase (38-126) U/L Troponin I <0.012 (0.000-0.034) ng/mL Total Protein (6.3-8.2) g/dL Albumin (3.5-5.0) g/dL Amylase (30-110) U/L Lipase (23-300) U/L Urine Color Light Yellow Urine Appearance Clear (Clear) Urine pH 6.0 (5.0-8.0) Ur Specific [place] 1.018 (1.001-1.035) Urine Protein Negative (Negative) Urine Glucose (UA) Negative (Negative) Urine Ketones Negative (Negative) Urine Blood Negative (Negative) Urine Nitrite Negative (Negative) Urine Bilirubin Negative (Negative) Urine Urobilinogen <2.0 (<2.0) mg/dL Ur Leukocyte Esterase Negative (Negative) Influenza Type A (PCR) Not Detected (Not Detectd) Influenza Type B (PCR) Not Detected (Not Detectd) RSV (PCR) Not Detected (Not Detectd) SARS-CoV-2 (PCR) Not Detected (Not Detectd) - Radiology Data Radiology results: report reviewed, image reviewed Disposition Clinical Impression: Nausea and vomiting, Diarrhea Disposition: HOME SELF-CARE Instructions (If sedation given, give patient instructions): Acute Nausea and Vomiting (ED), Acute Diarrhea (ED) Additional Instructions: Return to the emergency department with any new, worsening, or concerning sympt oms. Take the Zofran up to every 8 hours as needed for nausea and vomiting. You can take the Imodium as prescribed for the diarrhea. Slowly advance your diet as tolerated and remain well-hydrated. Follow up with your primary care provider in 1-2 days. Prescriptions: Loperamide [Imodium] 2 mg PO QID PRN #30 capsule PRN Reason: Diarrhea Ondansetron Odt [Zofran Odt] 4 mg PO Q8HR PRN #30 tab PRN Reason: Nausea And Vomiting Is patient prescribed a controlled substance at d/c from ED?: No Referrals: Kenton Jones MD [Primary Care Provider] - 1-2 days Time of Disposition: 15:01
[2024-02-18 10:03] LABS: Basophils % (A) 0 %; Eosinophils # (A) 0.2 k/uL (0-0.7); Eosinophils % (A) 1 %; HCT 45.9 % (34.0-46.0); HGB 14.9 gm/dL (11.4-16.0); Lymphocytes # (A) 0.3 k/uL (1.0-4.8); Lymphocytes % (A) 2 %; MCH 29.2 pg (25.0-35.0); MCHC 32.5 g/dL (31.0-37.0); MCV 89.9 fL (80.0-100.0); Mean Platelet Volume 8.3; Monocytes # (A) 0.3 k/uL (0-1.0); Monocytes % (A) 2 %; Neutrophils # (A) 16.2 k/uL (1.3-7.7); Neutrophils % (A) 95 %; Platelet Count 254 k/uL (150-450); RBC 5.11 m/uL (3.80-5.40); RDW 12.9 % (11.5-15.5); WBC 17.1 k/uL (3.8-10.6)
[2024-02-18 10:18] LABS: ALT 29 U/L (4-34); AST 30 U/L (14-36); African American GFR (CKD) >90 (>60 ml/min/1.73 sqM); Albumin 4.1 g/dL (3.5-5.0); Alkaline Phosphatase 62 U/L (38-126); Amylase 57 U/L (30-110); Anion Gap 10 mmol/L; Blood Urea Nitrogen 21 mg/dL (7-17); Calcium 9.1 mg/dL (8.4-10.2); Carbon Dioxide 21 mmol/L (22-30); Chloride 105 mmol/L (98-107); Glucose 184 mg/dL (74-99); Lipase 72 U/L (23-300); Magnesium 1.7 mg/dL (1.6-2.3); Non-African American GFR(CKD) 88 (>60 ml/min/1.73 sqM); Phosphorus 2.7 mg/dL (2.5-4.5); Potassium 4.7 mmol/L (3.5-5.1); Sodium 136 mmol/L (137-145); Total Bilirubin 0.8 mg/dL (0.2-1.3); Total Protein 6.9 g/dL (6.3-8.2)
[2024-02-18] MEDS: HYDROmorphone 0.5 MG/0.5 ML SYRINGE IVP STA (10:56)
[2024-02-18 11:19] LABS: Appearance,Urine Clear (Clear); Bilirubin,Urine Negative (Negative); Blood,Urine Negative (Negative); Color,Urine Light Yellow; Glucose,Urine (UA) Negative (Negative); Ketones,Urine Negative (Negative); Leukocyte Esterase,Urine Negative (Negative); Nitrite,Urine Negative (Negative); Protein,Urine Negative (Negative); Specific Gravity,Urine 1.018 (1.001-1.035); Urobilinogen,Urine <2.0 mg/dL (<2.0)
--- NOTE | 2024-02-18 14:52 | CT ---
EXAMINATION TYPE: CT abdomen pelvis w con CT DLP: 1914.9 mGycm, Automated exposure control for dose reduction was used. DATE OF EXAM: 02/18/2024 11:31 AM COMPARISON: None CLINICAL INDICATION:Female, 73 years old with history of Abdominal pain, acute, nonlocalized; umbilic al abd pain. n/v/d. TECHNIQUE: Axial CT abdomen pelvis w con;Sagittal and coronal reformats were created on a separate w orkstation. Contrast used:100 ml mL of Isovue 300 with IV Contrast, (none if empty) Oral contrast used: without Oral Contrast (none if empty) FINDINGS: LOWER CHEST: Unremarkable ABDOMEN LIVER: Unremarkable GALLBLADDER AND BILE DUCTS: Gallbladder is surgically absent with mild intrahepatic and extra hepatic biliary dilatation likely physiologic and a postcholecystectomy change. No evidence of choledocholit hiasis. PANCREAS: Unremarkable. SPLEEN: Unremarkable. ADRENAL GLANDS: Unremarkable. KIDNEYS AND URETERS: No evidence of hydronephrosis or renal calculus. The ureters are unremarkable. PELVIS BLADDER: Unremarkable REPRODUCTIVE: Unremarkable. ABDOMEN & PELVIS STOMACH AND BOWEL: No evidence of bowel obstruction. The appendix is not definitively visualized. No secondary signs of appendicitis. PERITONEUM/RETROPERITONEUM: No evidence of pneumoperitoneum or free fluid. Kacey mesentery throughout the abdomen. VASCULATURE: No evidence of aortic aneurysm. MUSCULOSKELETAL: No acute osseous abnormalities, postsurgical changes to the spine at L3 L4 L5 and S1 . Hardware appears intact. Discectomy at L3-L4 L4-L5 and L5-S1. Lumpectomy changes from L3 to L5. LYMPH NODES: No gross evidence for lymphadenopathy. SOFT TISSUE/ABDOMINAL WALL: Unremarkable IMPRESSION: 1. No evidence for acute abdominal process. No evidence for bowel obstruction. 2. Nonspecific Kacey mesentery which could represent sclerosing panniculitis.
[2024-02-18] MEDS: ONDANSETRON 4 MG ODT STARTER PACK 2 TAB BTL PO STA (15:07)
[2024-02-18] MEDS: DIPHENOX-ATROP STARTER PACK 8 TAB BTL PO STA (15:07)
[2024-02-18 20:37] VITALS: BP 132/66; PULSE 89; RESP 20
== END 2024-02-18 19:52 | disposition home or self-care (01) ==
LOC: EC 08:23
DX: K52.9 Noninfective gastroenteritis and colitis, unspecified (principal); E11.9 Type 2 diabetes mellitus without complications; E78.5 Hyperlipidemia, unspecified; Z11.52 Encounter for screening for COVID-19; Z79.84 Long term (current) use of oral hypoglycemic drugs; Z90.49 Acquired absence of other specified parts of digestive tract
CPT/HCPCS: 36415; 93005; 80053; 82150; 83605; 83690; 83735; 84100; 84484; 85025; 81003; 87636; 74177; 99284; 96374; 96375 ×2; 96361; J2405; J3490; S0119; J1170; Q9967

== ENCOUNTER 2024-05-13 10:03 | Emergency (ER) | payer MEDICARE ==
[2024-05-13 10:08] VITALS: RESP 18
--- NOTE | 2024-05-13 10:33 | ED ---
Skin/Abscess/FB HPI - General Chief complaint: Skin/Abscess/Foreign Body Stated complaint: bug bite Time Seen by Provider: 05/13/24 10:19 Source: patient, family, RN notes reviewed Mode of arrival: ambulatory Limitations: no limitations - History of Present Illness Initial comments: 73-year-old female presents emergency department with chief complaint of right leg rash. Patient states started on the day with multiple bumps, blistering. Patient was seen at urgent care was given azithromycin told her that it could be a bug bite or possible tick bite. Patient states that they are small blistering like area over her right leg. Patient states that itchy and painful. - Related Data Home Medications Medication Instructions Recorded Confirmed Aspirin EC [Ecotrin Low Dose] 81 mg PO DAILY 07/02/18 02/18/24 Montelukast [Singulair] 10 mg PO DAILY 07/02/18 02/18/24 [place]-3 Fatty Acids/Fish Oil [Fish 1 cap PO DAILY 07/02/18 02/18/24 Oil 1,000 mg Softgel] Rosuvastatin [Crestor] 20 mg PO DAILY 06/30/22 02/18/24 Acetaminophen Tab [Tylenol Tab] 500 mg PO Q6H PRN 02/18/24 02/18/24 Calcium Carbonate/Vitamin D3 2 tab PO DAILY 02/18/24 02/18/24 [Calcium 600 mg-Vit D3 10 mcg (400 Unit)] Celecoxib [CeleBREX] 200 mg PO DAILY 02/18/24 02/18/24 Cholecalciferol [Vitamin D3 (125 125 mcg PO DAILY 02/18/24 02/18/24 Mcg = 5000 Iu)] Cinnamon Bark [Cinnamon] 500 mg PO DAILY 02/18/24 02/18/24 Cyanocobalamin (Vitamin B-12) 1,000 mcg PO DAILY 02/18/24 02/18/24 [Vitamin B-12] Fluticasone Propion/Salmeterol 1 puff PO RT-BID 02/18/24 02/18/24 [Fluticasone-Salmeterol 250-50] Losartan [Cozaar] 50 mg PO DAILY 02/18/24 02/18/24 Magnesium Oxide [Mag-Ox] 400 mg PO DAILY 02/18/24 02/18/24 Mv-Min/Folic/K1/Lycopen/Lutein 1 tab PO DAILY 02/18/24 02/18/24 [Centrum Adults 50 Plus Minis] Potassium Gluconate 99 mg PO DAILY 02/18/24 02/18/24 amLODIPine [Norvasc] 5 mg PO DAILY 02/18/24 02/18/24 metFORMIN HCL [metFORMIN HCL ER] 750 mg PO BID 02/18/24 02/18/24 Previous Rx's Medication Instructions Recorded Loperamide [Imodium] 2 mg PO QID PRN #30 capsule 02/18/24 Ondansetron Odt [Zofran Odt] 4 mg PO Q8HR PRN #30 tab 02/18/24 Triamcinolone 0.1% Cream [Kenalog 1 applicatio TOPICAL BID #30 gram 05/13/24 0.1% Cream] valACYclovir HCL [Valtrex] 1,000 mg PO TID #30 tablet 05/13/24 Allergies Allergy/AdvReac Type Severity Reaction Status Date / Time No Known Allergies Allergy Verified 05/13/24 10:08 Review of Systems ROS Statement: Those systems with pertinent positive or pertinent negative responses have been documented in the HPI. ROS Other: All systems not noted in ROS Statement are negative. Past Medical History Past Medical History: Asthma, COPD, Diabetes Mellitus, Hyperlipidemia, Hypertension Additional Past Medical History / Comment(s): takes blood pressure pill to help her kidneys History of Any Multi-Drug Resistant Organisms: None Reported Past Surgical History: Cholecystectomy, Hysterectomy, Tonsillectomy Additional Past Surgical History / Comment(s): left shoulder total replacement, neck sx, cataracts, mastoid x3, spinal surgery, right knee replacement, right shoulder repair. Past Anesthesia/Blood Transfusion Reactions: No Reported Reaction Past Psychological History: No Psychological Hx Reported Smoking Status: Never smoker Past Alcohol Use History: None Reported Past Drug Use History: None Reported General Exam Limitations: no limitations General appearance: alert, in no apparent distress Head exam: Present: atraumatic, normocephalic, normal inspection Respiratory exam: Present: normal lung sounds bilaterally. Absent: respiratory distress, wheezes, rales, rhonchi, stridor Cardiovascular Exam: Present: regular rate, normal rhythm, normal heart sounds. Absent: systolic murmur, diastolic murmur, rubs, gallop, clicks Extremities exam: Present: other (Right thigh there are multiple healing erythematous blisters) Course Vital Signs 05/13/24 10:04 Temperature 97.7 F Pulse Rate 77 Respiratory 18 Rate Blood Pressure 152/76 O2 Sat by Pulse 98 Oximetry Medical Decision Making - Medical Decision Making Was pt. sent in by a medical professional or institution (PRIYANK Coburn, ENGINEERING PRODUCTION LIAISON, urgent care, hospital, or snf...) When possible be specific @ -No Did you speak to anyone other than the patient for history (EMS, parent, family, police, friend...)? What history was obtained from this source @ -No Did you review nursing and triage notes (agree or disagree)? Why? @ -I reviewed and agree with nursing and triage notes Were old charts reviewed (outside hosp., previous admission, EMS record, old EKG, old radiological studies, urgent care reports/EKG's, snf records)? Report findings @ -No old charts were reviewed Differential Diagnosis (chest pain, altered mental status, abdominal pain women, abdominal pain men, vaginal bleeding, weakness, fever, dyspnea, syncope, headache, dizziness, GI bleed, back pain, seizure, CVA, palpatations, mental health, musculoskeletal)? @ -Contact dermatitis, cellulitis, shingles EKG interpreted by me (3pts min.). @ -None X-rays interpreted by me (1pt min.). @ -None done CT interpreted by me (1pt min.). @ -None done U/S interpreted by me (1pt. min.). @ -None done What testing was considered but not performed or refused? (CT, X-rays, U/S, labs)? Why? @ -None What meds were considered but not given or refused? Why? @ -None Did you discuss the management of the patient with other professionals (professionals i.e. PRIYANK Coburn, ENGINEERING PRODUCTION LIAISON, lab, RT, psych nurse, social media content manager, ginner helper, teacher, county health officer, wrapper caser)? Give summary @ -No Was smoking cessation discussed for >3mins.? @ -No Was critical care preformed (if so, how long)? @ -No Were there social determinants of health that impacted care today? How? (Homelessness, low income, unemployed, alcoholism, drug addiction, tra nsportation, low edu. Level, literacy, decrease access to med. care, assisted, rehab)? @ -No Was there de-escalation of care discussed even if they declined (Discuss DNR or withdrawal of care, Hospice)? DNR status @ -No What co-morbidities impacted this encounter? (DM, HTN, Smoking, COPD, CAD, Cancer, CVA, ARF, Chemo, Hep., AIDS, mental health diagnosis, sleep apnea, morbid obesity)? @ -None Was patient admitted / discharged? Hospital course, mention meds given and route, prescriptions, significant lab abnormalities, going to OR and other pertinent info. @ -Discharge patient appears to have healing shingles area there are multiple small erythematous scabbed over, blisters noted Undiagnosed new problem with uncertain prognosis? @ -No Drug Therapy requiring intensive monitoring for toxicity (Heparin, Nitro, Insulin, Cardizem)? @ -No Were any procedures done? @ -No Diagnosis/symptom? @ -Herpes zoster Acute, or Chronic, or Acute on Chronic? @ -Acute Uncomplicated (without systemic symptoms) or Complicated (systemic symptoms)? @ -Uncomplicated Side effects of treatment? @ -No Exacerbation, Progression, or Severe Exacerbation? @ -No Poses a threat to life or bodily function? How? (Chest pain, [place], NC, pneumonia, PE, COPD, DKA, ARF, appy, cholecystitis, CVA, Diverticulitis, Homicidal, Suicidal, threat to staff... and all critical care pts) @ -No Disposition Clinical Impression: Herpes zoster Disposition: HOME SELF-CARE Condition: Stable Instructions (If sedation given, give patient instructions): Shingles (ED) Additional Instructions: Please return to the Emergency Department if symptoms worsen or any other concerns. Prescriptions: Triamcinolone 0.1% Cream [Kenalog 0.1% Cream] 1 applicatio TOPICAL BID #30 gram valACYclovir HCL [Valtrex] 1,000 mg PO TID #30 tablet Is patient prescribed a controlled substance at d/c from ED?: No Referrals: Kenton Jones MD [Primary Care Provider] - 1-2 days Time of Disposition: 10:33
[2024-05-13 10:40] VITALS: BP 146/72; PULSE 80; TEMP 98.1
== END 2024-05-13 10:41 | disposition home or self-care (01) ==
LOC: EC 10:03
DX: B02.9 Zoster without complications (principal)
CPT/HCPCS: 99282

== ENCOUNTER → 2025-04-04 | Outpatient (CLI) | payer MEDICARE ==
--- NOTE | 2025-04-04 18:16 | CA ---
Transthoracic Echo Report Name: Puja Mckinney Age: 74 Gender: F : 1950 Exam Date: 04/04/2025 15:33 Exam Location: [facility] Ht (in): 64 Wt (lb): 210 Ordering Physician: Jean Claude Maki MD Attending/Referring Phys: Cable Installer Repairer Helper Harjeet Hernandez RDCS Procedure CPT: Indications: R01.1 CARDIAC MURMUR I10 HTN Cardiac Hx: Technical Quality: Good Contrast 1: Total Dose (mL): Contrast 2: Total Dose (mL): MEASUREMENTS (Male / Female) Normal Values 2D ECHO LV Diastolic Diameter PLAX 5.0 cm 4.2 - 5.9 / 3.9 - 5.3 cm LV Systolic Diameter PLAX 3.7 cm IVS Diastolic Thickness 1.0 cm 0.6 - 1.0 / 0.6 - 0.9 cm LVPW Diastolic Thickness 1.0 cm 0.6 - 1.0 / 0.6 - 0.9 cm LV Relative Wall Thickness 0.4 RV Internal Dim ED PLAX 4.0 cm LVOT Diameter 1.5 cm LA Systolic Diameter LX 3.8 cm 3.0 - 4.0 / 2.7 - 3.8 cm LV Diastolic Volume MOD BP 85.4 cm??? 67 - 155 / 56 - 104 cm??? LV Systolic Volume MOD BP 33.0 cm??? - 58 / 19 - 49 cm??? LV Ejection Fraction MOD BP 61.4 % >= 55 % LV Cardiac Index MOD BP 1487.0 cm???/min???m??? LV Diastolic Volume MOD 4C 87.7 cm??? LV Systolic Volume MOD 4C 36.7 cm??? LV Ejection Fraction MOD 4C 58.1 % LV Cardiac Index MOD 4C 1444.9 cm???/min???m??? LV Diastolic Length 4C 7.4 cm LV Systolic Length 4C 6.3 cm LV Diastolic Volume MOD 2C 81.4 cm??? LV Systolic Volume MOD 2C 29.8 cm??? LV Ejection Fraction MOD 2C 63.4 % LV Cardiac Index MOD 2C 1463.2 cm???/min???m??? LV Diastolic Length 2C 7.7 cm LV Systolic Length 2C 6.2 cm LA Volume 53.4 cm??? 18 - 58 / 22 - 52 cm??? LA Volume Index 25.2 cm???/m??? 16 - 28 cm???/m??? DOPPLER MV Area PHT 3.5 cm??? Mitral E Point Velocity 72.2 cm/s Mitral A Point Velocity 91.9 cm/s Mitral E to A Ratio 0.8 MV Deceleration Time 218.6 ms TR Peak Velocity 207.5 cm/s TR Peak Gradient 17.2 mmHg FINDINGS Left Ventricle Left ventricular ejection fraction is estimated at 55 to 60 %. Normal left ventricular systolic function with no obvious regional wall motion abnormalities.left ventricular cavity size normal. Right Ventricle Normal right ventricular size and function. Right ventricular systolic pressure within normal limits. Right Atrium Normal right atrial size. Left Atrium Mildly increased left atrial volume. Mitral Valve Moderate mitral annular calcification. Mitral valve thickened. No mitral stenosis. Trace mitral regurgitation. Aortic Valve Trileaflet aortic valve.aortic valve sclerosis. No aortic valve stenosis or regurgitation. Tricuspid Valve Structurally normal tricuspid valve. No tricuspid stenosis. Mild tricuspid regurgitation. Pulmonic Valve Structurally normal pulmonic valve. No pulmonic stenosis. Trace pulmonic regurgitation. Pericardium No pericardial effusion. Aorta Normal size aortic root and proximal ascending aorta. CONCLUSIONS 1. Normal left ventricular size and systolic function 2. Moderate mitral annulus calcification 3. Mild tricuspid regurgitation Previewed by: Dr. Shahana Roger MD (Electronically Signed) Final Date: 04 April 2025 18:15
== END | disposition home or self-care (01) ==
LOC: RADECHMAIN 15:05
PROVIDERS: ATTEND Internal Medicine Interventional Cardiology
DX: R01.1 Cardiac murmur, unspecified (principal); I10 Essential (primary) hypertension; I08.1 Rheumatic disorders of both mitral and tricuspid valves
CPT/HCPCS: 93306